=== PATIENT | male | born 1980 | race Caucasian/White ===

== ENCOUNTER 2024-08-24 04:17 | Emergency (ER) | payer MEDICAID, SELFPAY ==
[2024-08-24] VITALS (7 sets, daily range): BP systolic 120–161; BP diastolic 75–110; PULSE 66–96; RESP 15–22; TEMP 36.7–37; O2SAT 93–96; BMI 70.6
--- NOTE | 2024-08-24 04:37 | PD.EDNECK ---
ED Neck Injury Pain RME/HPI General Chief Complaint: General Adult/Misc Complain Stated Complaint: multiple issues Time Seen by Provider: 08/24/24 04:35 Arrival date/time: 08/24/24 04:17 RME / HPI RME / HPI Narrative: This section includes all my notes and documentations, including HPI, PE, and ED course. Grayson Calixto MD HPI: 43 y/o male here with multiple concerns. He reports several days of worsening redness and swelling and pain of his left arm. Concerned about infection. Has been laying on the left arm fixing his car for the past several days. He also reports a couple week history of neck pain radiating into the right shoulder and right arm with numbness and tingling. Has trouble sleeping and functioning due to the severe burning pain. Was told he has cervical spinal stenosis. But only x-rays performed in the past. He has been told that he has rheumatoid arthritis. Takes gabapentin and diclofenac. Reports severe pain of the right knee and right ankle for the past several weeks, with no relief with gabapentin and diclofenac. Requests help with his severe pain. He also reports not taking his BP medication for the past several days. No headache. No chest pain. No other complaints. ROS: All negative except as documented in HPI. Physical Exam: General: Alert and oriented. In obvious pain. Eyes: Conjunctivae and lids clear. ENT: No nasal congestion. Neck: Supple. Equivocal spinal tenderness. Heart: RRR. Lungs: No respiratory distress. Good air movement. No rhonchi, wheezing, rales. Skin: Warm and dry. Entire left upper arm remarkable for erythema and edema and calor and tenderness. Neuro: Alert and oriented X 3. Cranial Nerves II-XII grossly intact. No peripheral motor deficits. Musculoskeletal: Equivocal right knee and right ankle tenderness. All other major joints and bones are not tender with no limited ROM. I ordered Toradol 30 mg IV, Solu-Medrol 125 mg IV, Unasyn 3 g IV, oral metoprolol 50 mg, and diagnostic tests. At 6 AM on 08/24/2024, the care of the patient was transferred to Dr. Perry. Grayson Calixto MD Related Data Home Medications ?Medication ?Instructions ?Recorded ?Confirmed cyclobenzaprine PO 02/22/19 02/22/19 gabapentin PO 02/22/19 02/22/19 Previous Rx's ?Medication ?Instructions ?Recorded ibuprofen 800 mg tablet 800 mg PO Q8H #30 tabs 02/03/19 Allergies Allergy/AdvReac Type Severity Reaction Status Date / Time No Known Allergies Allergy Verified 08/24/24 04:27 Review of Systems Review of Systems Systems Reviewed: All systems reviewed, normal except as documented ED Exam Narrative Physical exam: Refer to HPI above Course Quality Measures none Orders Category Date Time Status Saline [Insert IV] NOW Care 08/24/24 04:[address] cervical spine wo con Stat Exams 08/24/24 04:44 Ordered XR ankle comp RT min 3V Stat Exams 08/24/24 04:47 Taken XR knee RT 3V Stat Exams 08/24/24 04:47 Taken CBC Stat Lab 08/24/24 04:51 Received CK [Creatine Kinase] Stat Lab 08/24/24 04:51 Received CMP [Comprehensive Metabolic Panel] Stat Lab 08/24/24 04:51 Received CRP [C-Reactive Protein] Stat Lab 08/24/24 04:51 Received ESR [Sed Rate (ESR)] Stat Lab 08/24/24 04:51 Received Free T4 (Free Thyroxine) Stat Lab 08/24/24 04:51 Received Magnesium Stat Lab 08/24/24 04:51 Received Procalcitonin Stat Lab 08/24/24 04:51 Received TSH [Thyroid Stimulating Hormone] Stat Lab 08/24/24 04:51 Received Uric Acid Stat Lab 08/24/24 04:51 Received Ampicillin/Sulbac Inj [Unasyn Inj] 3 gm Med 08/24/24 04:47 Discontinued Sodium Chloride 0.9% (Pop) [NS 0.9% mini bag] 100 ml IV X1 Ketorolac Inj [Toradol Inj] Med 08/24/24 04:43 Discontinued 30 mg IVP X1 ONE MethylPREDNISolone.* [SoluMEDROL Inj] Med 08/24/24 04:43 Discontinued 125 mg IVP X1 ONE Metoprolol Tartrate [Lopressor] Med 08/24/24 04:47 Discontinued 50 mg PO X1 ONE Vital Signs Vital signs: Vital Signs Temperature 98.1 F 08/24/24 04:37 Pulse Rate 96 08/24/24 04:37 Respiratory Rate 22 H 05/12/25 04:37 Blood Pressure 153/107 H 08/24/24 04:37 Pulse Oximetry (%) 96 08/24/24 04:37 Oxygen Delivery Method Room Air 08/24/24 04:37 Neck Pain MDM Narrative MDM Narrative:: Scribe Attestation: ICiara, am scribing for and in the presence of Dr. Calixto. Provider Notation: Although this document has been carefully reviewed, there may still be some phonetic and other typographical errors.? These errors are purely grammatical due to imperfections in the software program and should not be construed in any way to? compromise the substance of the patient's medical care during this visit. 43 y/o morbidly obese male with Hx of RA and Spinal Stenosis presents to ED c/o redness to the left upper arm s/p lying on it while repairing a car x approximately 48 hours ago. Patient also reports a tingling, burning, stabbing sensation from the right arm down to the fingertips. Denies any paralysis. In addition, patient also c/o right ankle and right knee swelling and tenderness x approximately 24 hours. Patient data External records reviewed:: [facility] previous records (No recent ED records available for review.) Clinical information provided by:: patient Social determinants that could affect healthcare access:: none Patient has the following chronic illnesses:: RA, Spinal Stenosis How is presenting disease/condition affected by chronic disease/condition?: exacerbated by Evaluation data The following diagnostics were reviewed and interpreted by me:: other (specify) (Diagnostic test results pending.) Lab and/or radiology exams considered but not ordered:: None Interpretation Summary: Diagnostic test results pending. Medications / Prescriptions Medications or Prescriptions considered but not ordered:: None Medication administrations:: Medication Administration History Discontinued Medications Ampicillin Sodium/Sulbactam (Sodium 3 gm/ Sodium Chloride) 100 mls @ 200 mls/hr IV X1 ONE Stop: 08/24/24 04:48 Last Admin: 08/24/24 05:11 Dose: 200 mls/hr Documented By: DT Ketorolac Tromethamine (Ketorolac Inj 30 Mg/Ml Vial) 30 mg IVP X1 ONE Stop: 08/24/24 04:44 Last Admin: 08/24/24 05:06 Dose: 30 mg Documented By: DT Methylprednisolone Sodium Succinate (Methylprednisolone Sod Succ 62.5 Mg/Ml 2ml Vial) 125 mg IVP X1 ONE Stop: 08/24/24 04:44 Last Admin: 08/24/24 05:09 Dose: 125 mg Documented By: DT Metoprolol Tartrate (Metoprolol Tartrate 25 Mg Tablet) 50 mg PO X1 ONE Stop: 08/24/24 04:48 Last Admin: 08/24/24 05:10 Dose: 50 mg Documented By: DT I ordered Toradol 30 mg IV, Solu-Medrol 125 mg IV, Unasyn 3 g IV, oral metoprolol 50 mg, and diagnostic tests. Consultations Consultation(s) initiated? (list below): No Diagnosis Neck Differential Diagnosis: disc disorder of cervical region, closed subluxation of cervical spine, cervical radiculopathy, cervical spondylosis, strain of neck muscle and other (Rheumatoid arthritis flareup, gout, cellulitis, sepsis) Most likely diagnosis given after review of the tests above:: Diagnostic test results pending. Admission Indicated Admission indicated?: not indicated Explain why admission is indicated or not indicated:: Diagnostic test results pending. Admission Request Was there a request for admission?: No Disposition Plan Disposition Plan: other (specify) (At 6 AM on 08/24/2024, the care of the patient was transferred to Dr. Perry.) Discharge Plan Prescriptions/Referrals Prescriptions/Med Rec: No Action ibuprofen 800 mg tablet 800 mg PO Q8H Qty: 30 0RF gabapentin PO cyclobenzaprine PO Problem List Clinical Impression: Left arm cellulitis, Hypertension, Cervical radicular pain, Right knee pain, Right ankle pain Patient/Caregiver Discharge Instructions Print Language: Maltese
--- NOTE | 2024-08-24 04:44 | XR_ITS ---
Examination: CT cervical spine without contrast 2-D sagittal reconstructions 2-D coronal reconstructions 3-D reconstructions. Exam date and time:August 24, 2024 6:00 AM INDICATIONS: Burning neck pain radiating to the right arm beginning 2 weeks ago CTDI:vol (mGy) 24.6 DLP: (mGycm) 515 Technique: Multiple 2 mm axial sections of the cervical spine have been obtained. The coronal and sagittal reconstructions have been obtained. 3-D reconstructions have been obtained. Low dose protocols were performed. One or more of the following dose reduction techniques were used; automated exposure control, adjustment of the mA and/or KV according to patient size, use of iterative reconstruction technique. Findings: The patient's size severely limits this study No gross fracture Advanced disc narrowing C5-C6 C6-C7 C5-C6 moderate bilateral neural foraminal stenosis Adequate alignment posterior spinous processes IMPRESSION: Severely limited study No gross fracture Advanced degenerative disc disease C5-C6, C6-C7 C5-C6 moderate bilateral neural foraminal stenosis
--- NOTE | 2024-08-24 04:47 | XR_ITS ---
EXAMINATION: Ankle, right 3 views . Technique: Ankle AP, oblique, lateral 3 views Date and time of exam: August 24, 2024 0453 hours INDICATIONS: Right ankle swelling and tenderness 24 hours FINDINGS: Moderate to advanced osteoarthritis tibiotalar joint No fracture or dislocation. Bimalleolar soft tissue swelling IMPRESSION: Moderate to advanced osteoarthritis tibiotalar joint
--- NOTE | 2024-08-24 04:47 | XR_ITS ---
Examination: Knee, right , 3 views Technique: Knee AP, lateral, oblique 3 views Date and time of exam: August 24, 2024, 0453 hours INDICATIONS: Right knee swelling and pain beginning 24 hours ago. FINDINGS: Moderate to advanced tricompartment osteoarthritis, including severe narrowing medial joint space Moderate knee effusion No fracture IMPRESSION: Moderate to advanced tricompartment osteoarthritis
[2024-08-24] MEDS: KETOROLAC INJ 30 MG/ML VIAL IVP (05:06)
[2024-08-24] MEDS: MethylPREDNISolone SOD SUCC 62.5 MG/ML 2ML VIAL 125 MG IVP (05:09)
[2024-08-24] MEDS: METOPROLOL TARTRATE 25 MG TABLET 50 MG PO (05:10)
[2024-08-24] MEDS: AMPICILLIN/SULBAC INJ 3 GM in SODIUM CHLORIDE 0.9% (POP) 100 ML IV (05:11)
[2024-08-24 05:23] LABS: Basophils # (Auto) 0.1 Thou/mm3 (0.0-0.2); Basophils % (Auto) 1 % (0-2.5); Eosinophils # (Auto) 0.5 Thou/mm3 (0.0-0.5); Eosinophils % (Auto) 3 % (0-10); Hematocrit 40.4 % (41.0-53.0); Hemoglobin 13.9 g/dL (13.5-16.0); Immature Granulocytes % (Auto) 0 % (0-0); Immature Granulocytes Auto 0.06 Thou/mm3 (0.00-0.00); Lymphocytes # (Auto) 7.5 Thou/mm3 (1.0-4.8); Lymphocytes % (Auto) 46 % (10-50); Mean Corpuscular HGB Conc 34.4 g/dl (31.0-37.0); Mean Corpuscular Hemoglobin 28.4 pg (25.0-35.0); Mean Corpuscular Volume 83 fL (80-100); Monocytes # (Auto) 1.2 Thou/mm3 (0.0-0.8); Monocytes % (Auto) 7 % (0-12); Neutrophils % (Auto) 43 % (37-80); Nucleated Red Blood Cell % 0 /100 WBC (0); Platelet Count 193 Thou/mm3 (140-440); RDW Standard Deviation 41.4 fL (35.1-43.9); Red Blood Count 4.89 Miln/mm3 (4.50-5.90); White Blood Count 16.3 Thou/mm3 (3.8-10.6)
[2024-08-24 05:47] LABS: Alanine Aminotransferase 89 U/L (10-49); Albumin, Serum 4.1 gm/dL (3.5-5.0); Albumin/Globulin Ratio 1.7 (1.2-2.2); Alkaline Phosphatase 92 U/L (46-116); Anion Gap 6 (7-16); Aspartate Amino Transferase 44 U/L (0-34); BUN/Creatinine Ratio 16 Ratio (12-20); Bilirubin,Total 0.4 mg/dL (0.3-1.2); Blood Urea Nitrogen 16 mg/dL (9-23); C-Reactive Protein 1.3 mg/dL (0.0-0.9); Calcium 8.6 mg/dL (8.3-10.6); Calcium (Corrected) 8.6 mg/dL (8.5-10.1); Chloride 107 mMol/L (98-107); Creatine Kinase 198 U/L (34-171); Free T4 (Free Thyroxine) 1.17 ng/dL (0.89-1.76); Globulin 2.4 gm/dL (2.3-3.5); Glucose 151 mg/dL (74-106); Magnesium 1.8 mg/dL (1.6-2.6); Osmolality,Calculated 281 (275-295); Potassium 3.8 mMol/L (3.4-5.1); Sodium 139 mMol/L (136-145); Thyroid Stimulating Hormone 3.74 uIU/mL (0.55-4.78); Total Protein 6.5 gm/dL (5.7-8.2); Uric Acid 8.8 mg/dL (3.7-9.2); eGFR > 60 See Note
[2024-08-24 06:08] LABS: Sed Rate (ESR) 31 mm/hr (0-15)
[2024-08-24 06:18] LABS: Path Review Blood Smear Sent to Pathologist
--- NOTE | 2024-08-24 06:22 | EDNOTE_ITS ---
Emergency Room Addendum Addendum Narrative: 0600: Care assumed from Dr. Calixto, the previous shift emergency physician. Past medical, surgical, social and family history reviewed. Vitals and home medications reviewed. I will assume the care of the patient at this time, pending remainder of diagnostic tests and final disposition. Please refer to the emergency department record for history and examination from initial visit.? Physical exam by me shows patient under no acute distress at this time. 1105: Patient remains clinically stable throughout the emergency department visit. Re-assessment at the time of disposition demonstrates that the patient is in no acute distress. We reviewed all the results, analysis, and treatment plans. Patient is amenable to discharge. Strict return precautions were outlined. Patient was discharged in stable condition. Diagnoses: -Left arm cellulitis -Hypertension -Cervical radicular pain -Right knee pain -Neural foraminal stenosis of cervical spine -Osteoarthritis RADIOLOGY Procedure(s): XR knee RT 3V Accession Number(s): [id number] cc: Jo Calderon; Grayson Calixto MD; Dickson Patterson MD~ Examination: Knee, right , 3 views Technique: Knee AP, lateral, oblique 3 views Date and time of exam: August 24, 2024, 0453 hours INDICATIONS: Right knee swelling and pain beginning 24 hours ago. FINDINGS: Moderate to advanced tricompartment osteoarthritis, including severe narrowing medial joint space Moderate knee effusion No fracture IMPRESSION: Moderate to advanced tricompartment osteoarthritis Dictated By: Dickson Patterson MD Procedure(s): XR ankle comp RT min 3V Accession Number(s): [id number] cc: Jo Calderon; Grayson Calixto MD; Dickson Patterson MD~ EXAMINATION: Ankle, right 3 views . Technique: Ankle AP, oblique, lateral 3 views Date and time of exam: August 24, 2024 0453 hours INDICATIONS: Right ankle swelling and tenderness 24 hours FINDINGS: Moderate to advanced osteoarthritis tibiotalar joint No fracture or dislocation. Bimalleolar soft tissue swelling IMPRESSION: Moderate to advanced osteoarthritis tibiotalar joint Dictated By: Dickson Patterson MD Procedure(s): CT cervical spine wo con Accession Number(s): [id number] cc: Jo Calderon; Grayson Calixto MD; Dickson Patterson MD~ Examination: CT cervical spine without contrast 2-D sagittal reconstructions 2-D coronal reconstructions 3-D reconstructions. Exam date and time:August 24, 2024 6:00 AM INDICATIONS: Burning neck pain radiating to the right arm beginning 2 weeks ago CTDI:vol (mGy) 24.6 DLP: (mGycm) 515 Technique: Multiple 2 mm axial sections of the cervical spine have been obtained. The coronal and sagittal reconstructions have been obtained. 3-D reconstructions have been obtained. Low dose protocols were performed. One or more of the following dose reduction techniques were used; automated exposure control, adjustment of the mA and/or KV according to patient size, use of iterative reconstruction technique. Findings: The patient's size severely limits this study No gross fracture Advanced disc narrowing C5-C6 C6-C7 C5-C6 moderate bilateral neural foraminal stenosis Adequate alignment posterior spinous processes IMPRESSION: Severely limited study No gross fracture Advanced degenerative disc disease C5-C6, C6-C7 C5-C6 moderate bilateral neural foraminal stenosis Dictated By: Dickson Patterson MD
[2024-08-24 06:24] LABS: Procalcitonin 0.21 ng/ml (0.0-0.49)
[2024-08-24] MEDS: MORPHINE SULF INJ 10 MG/ML VIAL 4 MG IVP (11:32)
== END 2024-08-24 11:34 | disposition home or self-care (01) ==
PROVIDERS: Emergency Medicine; Emergency Provider Family Medicine; PCP Nurse Practitioner Family
DX: M48.02 Spinal stenosis, cervical region (principal); M50.122 Cervical disc disorder at C5-C6 level with radiculopathy; L03.114 Cellulitis of left upper limb; M17.11 Unilateral primary osteoarthritis, right knee; M19.071 Primary osteoarthritis, right ankle and foot; I10 Essential (primary) hypertension
CPT/HCPCS: 36415; 72125; 73562; 73610; 80053; 82550; 83735; 84145; 84439; 84443; 84550; 85025; 85652; 86140; 96365; 96375; 99284; J0295; J1885; J2270; J2919; A9270